=== PATIENT | female | born 1940 | race Caucasian/White ===

== ENCOUNTER 2019-11-01 09:58 | Inpatient (IN) | payer MEDICARE ==
[~2019-11-01] VITALS: Ht 167.6 cm; Wt 74.4 kg
[~2019-11-01 09:58] MED LIST: AMLODIPINE BESY10 MG PO; CALCIUM 500+D1 EACH PO; FOLIC ACID1 MG PO; LISINOPRIL10 MG PO; METHOTREXATE2.5 MG PO; PREVACID30 MG PO; RECLAST 55 MG/100 M PO; SYNTHROID75 MCG PO; ULTRACET TABLE1 EACH PO
[2019-11-01] MEDS ORDERED: SODIUM CHLORIDE 0.9% 1000ML 1,000 ML IV STA (10:14)
[2019-11-01] MEDS ORDERED: PANTOPRAZOLE 40 MG 10ML VIAL IV STA (10:14)
[2019-11-01] MEDS ORDERED: ONDANSETRON HCL INJ 2MG/ML 2ML 2 MG/ML VIAL IV STA (10:14)
[2019-11-01 11:17] LABS: BASOPHILS % 0.3 % (0.0-1.0); HEMATOCRIT 39.6 % (34.2-44.1); HEMOGLOBIN 12.9 g/dL (12.0-16.0); LYMPHOCYTES # (AUTO) 0.3 (1.0-3.2); LYMPHOCYTES % 3.2 % (18.0-39.1); MEAN CORPUSCULAR HEMOGLOBIN 29.9 pg (28-32); MEAN CORPUSCULAR HGB CONC 32.6 g/dL (31-35); MEAN CORPUSCULAR VOLUME 91.9 fL (81-99); MONOCYTES # (AUTO) 0.4 (0.2-0.8); MONOCYTES % 3.7 % (4.4-11.3); NEUTROPHILS # (AUTO) 9.3 (2.1-6.9); NEUTROPHILS % 92.1 % (38.7-80.0); PLATELET COUNT 137 x10e3/uL (140-360); RED BLOOD COUNT 4.31 x10e6/uL (3.6-5.1); RED CELL DISTRIBUTION WIDTH 14.2 % (11.7-14.4)
[2019-11-01 11:29] LABS: INR 0.93; PROTHROMBIN TIME 12.9 seconds (11.9-14.5)
[2019-11-01 11:30] LABS: PARTIAL THROMBOPLASTIN TIME 23.9 seconds (23.8-35.5)
[2019-11-01 11:38] LABS: ALANINE AMINOTRANSFERASE 37 IU/L (0-55); ALBUMIN 4.4 g/dL (3.5-5.0); ALBUMIN/GLOBULIN RATIO 1.1 (0.8-2.0); ALKALINE PHOSPHATASE 57 IU/L (40-150); ANION GAP 16.2 mmol/L (8-16); BLOOD UREA NITROGEN 11 mg/dL (7-26); BUN/CREATININE RATIO 14 (6-25); CALCIUM 8.7 mg/dL (8.4-10.2); CARBON DIOXIDE 22 mmol/L (22-29); CHLORIDE 104 mmol/L (98-107); CREATINE KINASE 44 IU/L (29-168); CREATININE, SERUM 0.78 mg/dL (0.57-1.11); EST GLOMERULAR FILTRATION RATE > 60 ML/MIN (60-); GLUCOSE 134 mg/dL (74-118); MAGNESIUM 1.9 MG/DL (1.3-2.1); POTASSIUM 3.2 mmol/L (3.5-5.1); SODIUM 139 mmol/L (136-145)
[2019-11-01 11:55] LABS: CLARITY,URINE CLEAR (CLEAR); COLOR,URINE YELLOW (YELLOW)
[2019-11-01] MEDS ORDERED: SODIUM CHLORIDE 0.9% 50ML 50 ML ONE (11:55)
[2019-11-01 11:56] LABS: BILIRUBIN,URINE NEGATIVE (NEGATIVE); KETONES,URINE TRACE (NEGATIVE); LEUKOCYTE ESTERASE ,URINE NEGATIVE (NEGATIVE); NITRITE,URINE NEGATIVE (NEGATIVE); PROTEIN,URINE DIPSTICK NEGATIVE (NEGATIVE); URINE UROBILINOGEN 0.2 mg/dL (0.2 - 1)
[2019-11-01] MEDS ORDERED: IOPAMIDOL 370 MG/ML 200 ML INFUS..BTL INJ ONE (11:56)
[2019-11-01 12:11] LABS: BACTERIA,URINE RARE /HPF; EPITHELIAL CELLS,URINE FEW /LPF; RBC,URINE 0-5 /HPF (0-5); WBC,URINE (MAN) 0-5 /HPF (0-5)
[2019-11-01 12:12] LABS: AMORPHOUS SEDIMENT,URINE FEW (FEW)
[2019-11-01] MEDS ORDERED: SODIUM CHLORIDE 0.9% 1000ML 1,000 ML IV SCH (12:45)
[2019-11-01] MEDS ORDERED: ONDANSETRON HCL INJ 2MG/ML 2ML 2 MG/ML VIAL IV PRN ×2 (12:45→19:15)
[2019-11-01] MEDS ORDERED: MORPHINE SULFATE INJ 4 MG/ML INJ 1ML IV PRN (12:45)
[2019-11-01] MEDS ORDERED: VANCOMYCIN 1GM/NS 250 ML 250 ML IV ONE (13:00)
[2019-11-01 14:25] LABS: LYMPHOCYTES % (MANUAL) 2 % (19-48); MONOCYTES % (MANUAL) 2 % (3.4-9.0); NEUTROPHILS % (MANUAL) 96 % (40-74); PLATELET MORPHOLOGY COMMENT NORMAL; RBC MORPHOLOGY COMMENT NORMAL
[2019-11-01 14:26] LABS: PLATELET ESTIMATE SLIGHTLY DECREASED
[2019-11-01] MEDS: PIPER-TAZ 3.375 GM 50 ML IV SCH ×2 (15:40→17:16)
[2019-11-01 18:16] VITALS: BP 123/59
[2019-11-01] MEDS ORDERED: ACETAMINOPHEN 325 MG TAB PO PRN (19:15)
[2019-11-01] MEDS ORDERED: POLYETHYLENE GLYCOL 3350 17 GM PACK PO PRN (19:15)
[2019-11-01] MEDS ORDERED: TEMAZEPAM 7.5 MG CAP PO PRN (19:15)
[2019-11-01] MEDS ORDERED: METOPROLOL TARTRATE INJ 1 MG/ML VIAL IV PRN (19:15)
[2019-11-01] MEDS ORDERED: METHOTREXATE SOD 2.5 MG TAB PO SCH (19:30)
[2019-11-01] MEDS ORDERED: TRAMADOL/APAP 37.5MG-325MG TAB PO PRN (19:30)
[2019-11-01 19:39] VITALS: BP 119/69
[2019-11-01 19:40] VITALS: BP 119/69
[2019-11-01] MEDS ORDERED: BISACODYL 10 MG SUPP PR ONE (19:45)
[2019-11-01 20:00] VITALS: BP 116/91
[2019-11-01] MEDS ORDERED: POTASSIUM CHLORIDE 20 MEQ TAB CR PO ONE (20:00)
[2019-11-01] MEDS ORDERED: AZITHROMYCIN 250MG/NS 100 ML 100 ML IV SCH (20:30)
[2019-11-01] MEDS: AZITHROMYCIN 500MG/NS 250 ML 250 ML IV SCH (21:44)
[2019-11-01] MEDS: ALBUTEROL/IPRATROPIUM 3 ML NEB NEB SCH (22:00)
[2019-11-02] VITALS (7 sets, daily range): BP systolic 103–129; BP diastolic 50–87
[2019-11-02] MEDS: PIPER-TAZ 3.375 GM 50 ML IV SCH ×4 (00:06→17:42)
[2019-11-02] MEDS: ALBUTEROL/IPRATROPIUM 3 ML NEB NEB SCH ×3 (06:00→15:45)
[2019-11-02] MEDS: LEVOTHYROXINE SODIUM 75 MCG TAB PO SCH (06:09)
[2019-11-02 07:05] LABS: BASOPHILS % 0.5 % (0.0-1.0); EOSINOPHILS # (AUTO) 0.1 (0.0-0.4); EOSINOPHILS % 1.1 % (0.0-6.0); HEMATOCRIT 33.8 % (34.2-44.1); HEMOGLOBIN 10.9 g/dL (12.0-16.0); LYMPHOCYTES # (AUTO) 1.1 (1.0-3.2); LYMPHOCYTES % 13.8 % (18.0-39.1); MEAN CORPUSCULAR HEMOGLOBIN 29.9 pg (28-32); MEAN CORPUSCULAR HGB CONC 32.2 g/dL (31-35); MEAN CORPUSCULAR VOLUME 92.9 fL (81-99); MONOCYTES # (AUTO) 0.8 (0.2-0.8); MONOCYTES % 9.3 % (4.4-11.3); NEUTROPHILS % 74.8 % (38.7-80.0); PLATELET COUNT 113 x10e3/uL (140-360); RED BLOOD COUNT 3.64 x10e6/uL (3.6-5.1); RED CELL DISTRIBUTION WIDTH 14.5 % (11.7-14.4)
[2019-11-02 07:30] LABS: ALANINE AMINOTRANSFERASE 26 IU/L (0-55); ALBUMIN 3.4 g/dL (3.5-5.0); ALBUMIN/GLOBULIN RATIO 1.1 (0.8-2.0); ALKALINE PHOSPHATASE 51 IU/L (40-150); ANION GAP 9.7 mmol/L (8-16); BLOOD UREA NITROGEN 9 mg/dL (7-26); BUN/CREATININE RATIO 14 (6-25); CARBON DIOXIDE 23 mmol/L (22-29); CHLORIDE 110 mmol/L (98-107); CREATININE, SERUM 0.65 mg/dL (0.57-1.11); EST GLOMERULAR FILTRATION RATE > 60 ML/MIN (60-); GLUCOSE 102 mg/dL (74-118); POTASSIUM 3.7 mmol/L (3.5-5.1); SODIUM 139 mmol/L (136-145)
[2019-11-02 07:54] LABS: CHOL/HDL RATIO 3.5 (3.0-3.6); CHOLESTEROL 132 MD/DL (0-199); HDL CHOLESTEROL 38 MG/DL (40-60); LDL CHOLESTEROL 86 MG/DL (60-130); PHOSPHORUS 2.5 MG/DL (2.3-4.7); TRIGLYCERIDES 41 MG/DL (0-149)
[2019-11-02 08:12] LABS: THYROID STIMULATING HORMONE 0.027 uIU/mL (0.350-4.940)
[2019-11-02] MEDS: LISINOPRIL 20 MG TAB PO SCH (09:00)
[2019-11-02] MEDS: DOCUSATE SODIUM 100 MG CAP PO SCH ×2 (09:00→17:00)
[2019-11-02] MEDS: AMLODIPINE BESYLATE 10 MG TAB PO SCH (09:00)
[2019-11-02] MEDS: FAMOTIDINE 20 MG/2 ML VIAL IV SCH ×2 (09:22→17:41)
[2019-11-02] MEDS: CALCIUM CARBONATE 500 MG CHEWABLE TABS PO SCH (09:33)
[2019-11-02 09:37] LABS: PLATELET ESTIMATE MODERATELY DECREASED; PLATELET MORPHOLOGY COMMENT NORMAL
[2019-11-02] MEDS: AZITHROMYCIN 500MG/NS 250 ML 250 ML IV SCH (21:07)
[2019-11-03] VITALS (8 sets, daily range): BP systolic 115–133; BP diastolic 65–74
[2019-11-03] MEDS: PIPER-TAZ 3.375 GM 50 ML IV SCH ×4 (00:18→17:56)
[2019-11-03] MEDS: LEVOTHYROXINE SODIUM 75 MCG TAB PO SCH (05:48)
[2019-11-03 07:16] LABS: BASOPHILS % 0.4 % (0.0-1.0); EOSINOPHILS % 0.2 % (0.0-6.0); HEMATOCRIT 32.7 % (34.2-44.1); HEMOGLOBIN 10.7 g/dL (12.0-16.0); LYMPHOCYTES # (AUTO) 0.9 (1.0-3.2); LYMPHOCYTES % 19.4 % (18.0-39.1); MEAN CORPUSCULAR HEMOGLOBIN 30.1 pg (28-32); MEAN CORPUSCULAR HGB CONC 32.7 g/dL (31-35); MEAN CORPUSCULAR VOLUME 92.1 fL (81-99); MONOCYTES # (AUTO) 0.4 (0.2-0.8); MONOCYTES % 9.2 % (4.4-11.3); NEUTROPHILS # (AUTO) 3.2 (2.1-6.9); NEUTROPHILS % 70.4 % (38.7-80.0); PLATELET COUNT 109 x10e3/uL (140-360); RED BLOOD COUNT 3.55 x10e6/uL (3.6-5.1); RED CELL DISTRIBUTION WIDTH 14.6 % (11.7-14.4)
[2019-11-03] MEDS: ALBUTEROL/IPRATROPIUM 3 ML NEB NEB SCH ×4 (07:18→19:05)
[2019-11-03 07:34] LABS: ANION GAP 13.1 mmol/L (8-16); BLOOD UREA NITROGEN 8 mg/dL (7-26); BUN/CREATININE RATIO 12 (6-25); CALCIUM 8.4 mg/dL (8.4-10.2); CARBON DIOXIDE 24 mmol/L (22-29); CHLORIDE 106 mmol/L (98-107); CREATININE, SERUM 0.68 mg/dL (0.57-1.11); EST GLOMERULAR FILTRATION RATE > 60 ML/MIN (60-); GLUCOSE 101 mg/dL (74-118); POTASSIUM 3.1 mmol/L (3.5-5.1); SODIUM 140 mmol/L (136-145)
[2019-11-03] MEDS: LISINOPRIL 20 MG TAB PO SCH (08:30)
[2019-11-03] MEDS: CALCIUM CARBONATE 500 MG CHEWABLE TABS PO SCH (08:30)
[2019-11-03] MEDS: FAMOTIDINE 20 MG/2 ML VIAL IV SCH ×2 (08:30→17:55)
[2019-11-03] MEDS: AMLODIPINE BESYLATE 10 MG TAB PO SCH (08:30)
[2019-11-03] MEDS: DOCUSATE SODIUM 100 MG CAP PO SCH ×2 (08:40→17:00)
[2019-11-03] MEDS: FOLIC ACID 1 MG TAB PO SCH (12:40)
[2019-11-03] MEDS ORDERED: POTASSIUM CHLORIDE 20 MEQ TAB CR PO ONE (14:00)
[2019-11-03] MEDS: AZITHROMYCIN 500MG/NS 250 ML 250 ML IV SCH (20:03)
[2019-11-04] VITALS (7 sets, daily range): BP systolic 122–145; BP diastolic 63–81
[2019-11-04] MEDS: PIPER-TAZ 3.375 GM 50 ML IV SCH ×3 (00:10→12:30)
[2019-11-04 05:51] LABS: BASOPHILS % 0.8 % (0.0-1.0); HEMATOCRIT 35.8 % (34.2-44.1); HEMOGLOBIN 11.6 g/dL (12.0-16.0); LYMPHOCYTES # (AUTO) 0.9 (1.0-3.2); LYMPHOCYTES % 23.4 % (18.0-39.1); MEAN CORPUSCULAR HGB CONC 32.4 g/dL (31-35); MEAN CORPUSCULAR VOLUME 92.5 fL (81-99); MONOCYTES # (AUTO) 0.4 (0.2-0.8); MONOCYTES % 10.7 % (4.4-11.3); NEUTROPHILS # (AUTO) 2.5 (2.1-6.9); NEUTROPHILS % 63.6 % (38.7-80.0); PLATELET COUNT 129 x10e3/uL (140-360); RED BLOOD COUNT 3.87 x10e6/uL (3.6-5.1); RED CELL DISTRIBUTION WIDTH 14.6 % (11.7-14.4)
[2019-11-04] MEDS: LEVOTHYROXINE SODIUM 75 MCG TAB PO SCH (05:52)
[2019-11-04 06:20] LABS: ANION GAP 13.1 mmol/L (8-16); BLOOD UREA NITROGEN 10 mg/dL (7-26); BUN/CREATININE RATIO 14 (6-25); CARBON DIOXIDE 25 mmol/L (22-29); CHLORIDE 106 mmol/L (98-107); CREATININE, SERUM 0.73 mg/dL (0.57-1.11); EST GLOMERULAR FILTRATION RATE > 60 ML/MIN (60-); GLUCOSE 95 mg/dL (74-118); MAGNESIUM 2.1 MG/DL (1.3-2.1); PHOSPHORUS 3.6 MG/DL (2.3-4.7); POTASSIUM 4.1 mmol/L (3.5-5.1); SODIUM 140 mmol/L (136-145)
[2019-11-04 06:23] LABS: CALCIUM 9.1 mg/dL (8.4-10.2)
[2019-11-04] MEDS: ALBUTEROL/IPRATROPIUM 3 ML NEB NEB SCH ×3 (07:28→15:44)
[2019-11-04] MEDS ORDERED: PANTOPRAZOLE SOD 40 MG TABEC PO SCH (07:30)
[2019-11-04] MEDS: FOLIC ACID 1 MG TAB PO SCH (09:41)
[2019-11-04] MEDS: AMLODIPINE BESYLATE 10 MG TAB PO SCH (09:41)
[2019-11-04] MEDS: DOCUSATE SODIUM 100 MG CAP PO SCH (09:41)
[2019-11-04] MEDS: CALCIUM CARBONATE 500 MG CHEWABLE TABS PO SCH (09:42)
[2019-11-04] MEDS: LISINOPRIL 20 MG TAB PO SCH (09:42)
[2019-11-04] MEDS ORDERED: ZITHROMAX500 MG PO (14:46)
[2019-11-04] MEDS ORDERED: LEVOTHYROXINE50 MCG PO (14:46)
[2019-11-04] MEDS ORDERED: AUGMENTIN 875-1 EACH PO (14:46)
== END 2019-11-04 17:31 | disposition home or self-care (01) | DRG 871 ==
LOC: ER 10:15 → ERHOLD 12:35 → MED/SURG3 18:03 → OBSVTOIN 11-02 14:51
PROVIDERS: ADMIT Internal Medicine; ATTEND Internal Medicine
DX: A41.9 Sepsis, unspecified organism (principal); G93.41 Metabolic encephalopathy; J18.9 Pneumonia, unspecified organism; L03.113 Cellulitis of right upper limb; E87.6 Hypokalemia; I10 Essential (primary) hypertension; K80.20 Calculus of gallbladder without cholecystitis without obstruction; M34.9 Systemic sclerosis, unspecified; D64.9 Anemia, unspecified; E03.9 Hypothyroidism, unspecified; Z87.891 Personal history of nicotine dependence; K44.9 Diaphragmatic hernia without obstruction or gangrene; J43.9 Emphysema, unspecified; D69.6 Thrombocytopenia, unspecified; Z85.3 Personal history of malignant neoplasm of breast; Z90.11 Acquired absence of right breast and nipple; R65.20 Severe sepsis without septic shock; Z20.828 Contact with and (suspected) exposure to other viral communicable diseases
CPT/HCPCS: 36415; 70450; 71260; 74177; 74230; 80048; 80053; 80061; 81001; 82550; 82553; 83036; 83605; 83735; 84100; 84443; 84484; 85025; 85610; 85730; 87040; 87086; 93005; 94640; 97139; 99285; G0378; J0456; J2405; J2543; J3370; J7030; Q9967; U0002